=== PATIENT | female | born 1960 | race Caucasian/White ===

== ENCOUNTER 2023-11-30 13:24 | Emergency (ER) | payer SELFPAY ==
[2023-11-30] MEDS: Bacitracin Oint 1 GM U/D Packet TOP ONE (14:13)
== END 2023-11-30 14:18 | disposition home or self-care (01) ==
LOC: DL.ED 13:24
DX: S61.317A Laceration without foreign body of left little finger with damage to nail, initial encounter (principal); Z91.038 Other insect allergy status; Z91.048 Other nonmedicinal substance allergy status; W23.1XXA Caught, crushed, jammed, or pinched between stationary objects, initial encounter
CPT/HCPCS: 73140; 99282; 99283; A9270